=== PATIENT | male | born 1965 | race Caucasian/White ===

== ENCOUNTER 2017-02-03 12:44 | Inpatient (IN) | payer OTHER ==
[~2017-02-03] VITALS: Ht 170.2 cm; Wt 107.3 kg
[~2017-02-03 12:44] MED LIST: AMLODIPINE BESY10 MG PO; ASPIR 8181 M1 PO; ATORVASTATIN CA40 MG PO; CARDIZEM SR120 MG PO; CLINDAMYCIN HC300 MG PO; ENDOCET 5-3251 EACH PO; HUMULIN 70100 UNIT/2 SC; HUMULIN 70100 UNIT/3 SC; HYDROCODON-ACE1 EAC7 PO; KEFLEX500 MG PO; LIPITOR10 MG PO; LISINOPRIL40 MG PO; Levaquin PO; METOPROLOL SUCC25 MG PO; NOVOLIN,HU100 UNITS/ SQ; NOVOLOG MI100 UNIT/4 SC; TOPROL XL25 MG PO; TYLOX1 CAPSULE PO
[2017-02-03 13:22] LABS: POINT-OF-CARE METER ID UU13113778
[2017-02-03 13:28] LABS: EOSINOPHIL (%) 0 % (0-5); HEMATOCRIT 36.6 % (38.0-50.0); IMMATURE GRANULOCYTE (%) 0.4 % (0.0-0.7); IMMATURE GRANULOCYTE COUNT 0.1 K/uL; INSTRUMENT ABS NEUTROPHIL CT 13.8 K/uL; MCH 26.7 PG (29.0-34.0); MCHC 31.4 G/DL (30.0-36.0); MCV 84.9 FL (86-99); MEAN PLAT.VOLUME 9.7 uM^3 (9.0-12.4); MONOCYTE (%) 7.6 % (3-12); MONOCYTE COUNT 1.2 K/uL (0-0.8); NEUTROPHIL (%) 85.6 % (45-76); NEUTROPHIL COUNT 13.8 K/uL (1.8-6.4); PLATELET COUNT 246 K/uL (156-360); RBC DIS.WIDTH-CV 13.9 % (11.8-14.6); RBC DIS.WIDTH-SD 42.9 % (39-53); RED BLOOD COUNT 4.31 M/uL (4.00-5.50); WHITE BLOOD COUNT 16.1 K/uL (4.1-10.2)
[2017-02-03 13:40] LABS: CHLORIDE 102 mEq/L (99-109); POTASSIUM 4.4 mEq/L (3.7-5.4); SODIUM 136 mEq/L (136-147)
[2017-02-03 13:42] LABS: GLUCOSE 158 mg/dL (70-99)
[2017-02-03 13:43] LABS: ANION GAP 9 MEQ/L (2-14)
[2017-02-03 13:46] LABS: GFR ESTIMATE (CALCULATED) > 59 mL/min/; UREA NITROGEN (BUN) 22 mg/dL (9-23)
[2017-02-03 14:50] LABS: ERTH.SED.RATE 69 MM/HR (0-20)
[2017-02-03] MEDS ORDERED: NORVASC10 MG PO (14:51)
[2017-02-03] MEDS ORDERED: LOW DOSE ASPIRI81 M1 PO (14:51)
[2017-02-03] MEDS ORDERED: CARDIZEM SR120 MG PO (14:52)
[2017-02-03] MEDS ORDERED: HUMALOG MI100 UNIT/5 SC (14:53)
[2017-02-03] MEDS ORDERED: ZESTRIL40 MG PO (14:53)
[2017-02-03] MEDS ORDERED: TOPROL XL25 MG PO (14:54)
[2017-02-03] MEDS ORDERED: TRADJENTA5 MG PO (14:54)
[2017-02-03] MEDS ORDERED: AUGMENTIN875 MG PO (14:55)
[2017-02-03 16:42] LABS: ADD MIUA? YES; BILIRUBIN NEGATIVE; BLOOD SMALL; COLOR YELLOW ((YELLOW)); GLUCOSE (STRIP) 50; KETONES NEGATIVE; LEUKOCYTES NEGATIVE; NITRITE NEGATIVE; PROTEIN (STRIP) >=500; SPECIFIC GRAVITY 1.014 (1.000-1.030); UROBILINOGEN 0.2 MG/DL (0.2-1.0)
[2017-02-03 16:49] LABS: BACTERIA NONE SEEN /HPF; EPITHELIAL CELLS RARE /HPF; HYALINE CASTS 0-5 /LPF; MUCUS TRACE /LPF; RED BLOOD CELLS 0-5 /HPF (0-5); UCUL ADDED? NO; WHITE BLOOD CELLS 0-5 /HPF (0-5)
[2017-02-03 19:20] LABS: Estimated Average Glucose 194 mg/dL (70-123); HEMOGLOBIN A1c (GLYCOHEMOGLOB) 8.4 % HGB (Below 5.7)
[2017-02-03 20:34] LABS: TROP-I INTERPRETATION NEGATIVE; TROPONIN-I 0.02 ng/mL (0.0-0.30)
[2017-02-03 20:40] VITALS: BP 176/81
[2017-02-03 22:28] VITALS: BP 129/58
[2017-02-04 00:13] VITALS: BP 109/53
[2017-02-04 04:27] VITALS: BP 160/100
[2017-02-04 05:39] LABS: ANION GAP 8 MEQ/L (2-14); CHLORIDE 102 MEQ/L (99-109); GFR ESTIMATE (CALCULATED) 57 mL/min/; GLUCOSE 172 mg/dL (70-99); POTASSIUM 4.2 MEQ/L (3.7-5.4); SAMPLE HEMOLYSIS CHECK 0; SAMPLE ICTERIC CHECK 0; SAMPLE LIPEMIA CHECK 0; SODIUM 135 MEQ/L (136-147); UREA NITROGEN (BUN) 23 mg/dL (9-23)
[2017-02-04 05:47] LABS: HEMATOCRIT 31.3 % (38.0-50.0); MCH 26.6 PG (29.0-34.0); MCHC 31.3 G/DL (30.0-36.0); MCV 85.1 FL (86-99); MEAN PLAT.VOLUME 10.3 uM^3 (9.0-12.4); PLATELET COUNT 190 K/uL (156-360); RBC DIS.WIDTH-CV 13.9 % (11.8-14.6); RBC DIS.WIDTH-SD 43.3 % (39-53); RED BLOOD COUNT 3.68 M/uL (4.00-5.50)
[2017-02-04 05:48] LABS: WHITE BLOOD COUNT 7.9 K/uL (4.1-10.2)
[2017-02-04 07:24] VITALS: BP 122/58
[2017-02-04 07:49] VITALS: BP 132/60
[2017-02-04 15:00] VITALS: BP 129/70
[2017-02-04 16:35] LABS: POINT-OF-CARE METER ID UU14188577
[2017-02-04 20:11] VITALS: BP 125/66
[2017-02-05] VITALS (7 sets, daily range): BP systolic 103–140; BP diastolic 55–78
[2017-02-05 02:54] LABS: CHLORIDE 105 mEq/L (99-109); POTASSIUM 3.8 mEq/L (3.7-5.4); SODIUM 135 mEq/L (136-147)
[2017-02-05 02:56] LABS: GLUCOSE 164 mg/dL (70-99)
[2017-02-05 02:57] LABS: ANION GAP 7 MEQ/L (2-14)
[2017-02-05 03:00] LABS: GFR ESTIMATE (CALCULATED) 57 mL/min/; HEMATOCRIT 30.1 % (38.0-50.0); MCHC 31.6 G/DL (30.0-36.0); MCV 85.5 FL (86-99); MEAN PLAT.VOLUME 9.6 uM^3 (9.0-12.4); PLATELET COUNT 179 K/uL (156-360); RED BLOOD COUNT 3.52 M/uL (4.00-5.50)
[2017-02-05 03:01] LABS: UREA NITROGEN (BUN) 28 mg/dL (9-23)
[2017-02-05 11:15] LABS: POINT-OF-CARE METER ID UU14149397
[2017-02-05 16:32] LABS: POINT-OF-CARE METER ID UU14188577
[2017-02-05 22:01] LABS: POINT-OF-CARE METER ID UU14188577
[2017-02-06 04:06] VITALS: BP 142/78
[2017-02-06 06:14] LABS: HEMATOCRIT 30.7 % (38.0-50.0); MCH 26.1 PG (29.0-34.0); MCHC 30.6 G/DL (30.0-36.0); MCV 85.3 FL (86-99); MEAN PLAT.VOLUME 10.4 uM^3 (9.0-12.4); PLATELET COUNT 196 K/uL (156-360); RBC DIS.WIDTH-CV 13.9 % (11.8-14.6); RBC DIS.WIDTH-SD 43.3 % (39-53); WHITE BLOOD COUNT 4.7 K/uL (4.1-10.2)
[2017-02-06 06:39] LABS: ANION GAP 8 MEQ/L (2-14); CHLORIDE 109 MEQ/L (99-109); GFR ESTIMATE (CALCULATED) > 59 mL/min/; GLUCOSE 147 mg/dL (70-99); POTASSIUM 3.9 MEQ/L (3.7-5.4); SAMPLE HEMOLYSIS CHECK 0; SAMPLE ICTERIC CHECK 0; SAMPLE LIPEMIA CHECK 0; SODIUM 140 MEQ/L (136-147); UREA NITROGEN (BUN) 20 mg/dL (9-23)
[2017-02-06 07:57] VITALS: BP 130/78
[2017-02-06 12:02] LABS: POINT-OF-CARE METER ID UU14188577
[2017-02-06 12:23] VITALS: BP 140/78; BP 146/95
[2017-02-06 16:07] LABS: POINT-OF-CARE METER ID UU14188577
[2017-02-06 16:17] VITALS: BP 138/72
[2017-02-06 20:41] VITALS: BP 177/81
[2017-02-07 00:49] VITALS: BP 136/67
[2017-02-07 04:36] VITALS: BP 159/70
[2017-02-07 05:58] LABS: ANION GAP 9 MEQ/L (2-14); CHLORIDE 108 MEQ/L (99-109); GFR ESTIMATE (CALCULATED) > 59 mL/min/; GLUCOSE 113 mg/dL (70-99); POTASSIUM 3.7 MEQ/L (3.7-5.4); SAMPLE HEMOLYSIS CHECK 0; SAMPLE ICTERIC CHECK 0; SAMPLE LIPEMIA CHECK 0; SODIUM 140 MEQ/L (136-147); UREA NITROGEN (BUN) 15 mg/dL (9-23)
[2017-02-07 06:31] LABS: HEMATOCRIT 28.7 % (38.0-50.0); MCH 26.6 PG (29.0-34.0); MCHC 31.4 G/DL (30.0-36.0); MCV 84.9 FL (86-99); MEAN PLAT.VOLUME 10.6 uM^3 (9.0-12.4); PLATELET COUNT 190 K/uL (156-360); RBC DIS.WIDTH-CV 13.7 % (11.8-14.6); RBC DIS.WIDTH-SD 42.6 % (39-53); RED BLOOD COUNT 3.38 M/uL (4.00-5.50); WHITE BLOOD COUNT 5.7 K/uL (4.1-10.2)
[2017-02-07 07:15] LABS: POINT-OF-CARE METER ID UU14149397
[2017-02-07 09:00] VITALS: BP 161/77
[2017-02-07 16:40] VITALS: BP 174/83
[2017-02-07 19:26] VITALS: BP 178/86
[2017-02-07 22:10] LABS: POINT-OF-CARE METER ID UU14188577
[2017-02-08 00:39] VITALS: BP 166/79
[2017-02-08 05:58] LABS: GFR ESTIMATE (CALCULATED) > 59 mL/min/
[2017-02-08 07:05] LABS: POINT-OF-CARE METER ID UU14188577
[2017-02-08 08:15] VITALS: BP 160/82
[2017-02-08] MEDS ORDERED: VANCOMYCIN1 GM/150 M IV (15:40)
[2017-02-08 15:56] VITALS: BP 138/74
[2017-02-08] MEDS ORDERED: ACIDOPHILUS LA1 EACH PO (18:14)
== END 2017-02-08 18:18 | disposition home health service (06) | DRG 872 ==
LOC: EME 12:44 → 3EAST 15:55 → EDOF 15:55 → 3EAST 19:50
PROVIDERS: Hospitalist; Internal Medicine; Nurse Practitioner Family
DX: A41.02 Sepsis due to Methicillin resistant Staphylococcus aureus (principal); L03.116 Cellulitis of left lower limb; E11.621 Type 2 diabetes mellitus with foot ulcer; L97.522 Non-pressure chronic ulcer of other part of left foot with fat layer exposed; M86.672 Other chronic osteomyelitis, left ankle and foot; E87.1 Hypo-osmolality and hyponatremia; N28.9 Disorder of kidney and ureter, unspecified; I12.9 Hypertensive chronic kidney disease with stage 1 through stage 4 chronic kidney disease, or unspecified chronic kidney disease; N18.3 Chronic kidney disease, stage 3 (moderate); E11.22 Type 2 diabetes mellitus with diabetic chronic kidney disease; E11.40 Type 2 diabetes mellitus with diabetic neuropathy, unspecified; E11.319 Type 2 diabetes mellitus with unspecified diabetic retinopathy without macular edema; E11.610 Type 2 diabetes mellitus with diabetic neuropathic arthropathy; E11.69 Type 2 diabetes mellitus with other specified complication; I25.10 Atherosclerotic heart disease of native coronary artery without angina pectoris; E78.00 Pure hypercholesterolemia, unspecified; E66.9 Obesity, unspecified; I25.2 Old myocardial infarction; Z68.37 Body mass index [BMI] 37.0-37.9, adult; Z79.4 Long term (current) use of insulin; Z87.891 Personal history of nicotine dependence; Z86.73 Personal history of transient ischemic attack (TIA), and cerebral infarction without residual deficits; Z89.431 Acquired absence of right foot; Z79.82 Long term (current) use of aspirin; Z95.5 Presence of coronary angioplasty implant and graft
CPT/HCPCS: 73630; 73720; 76937; 80048; 80202; 81003; 82565; 82948; 83036; 83605; 84484; 85025; 85027; 85651; 87040; 87070; 87075; 87077; 87147; 87186; 87205; 87801; 99281; 99285; J1650; J1815; J2543; J3370; J7030; J7050

== ENCOUNTER 2017-02-20 10:07 | Inpatient (IN) | payer OTHER ==
[~2017-02-20] VITALS: Ht 175.3 cm; Wt 108.9 kg
[~2017-02-20 10:07] MED LIST changes: +ACIDOPHILUS LA1 EACH PO; +AUGMENTIN875 MG PO; +HUMALOG MI100 UNIT/5 SC; +LOW DOSE ASPIRI81 M1 PO; +NORVASC10 MG PO; +TRADJENTA5 MG PO; +VANCOMYCIN1 GM/150 M IV; +ZESTRIL40 MG PO
[2017-02-20 11:23] LABS: HEMATOCRIT 38.4 % (38.0-50.0); MCH 26.7 PG (29.0-34.0); MCHC 31.3 G/DL (30.0-36.0); MCV 85.5 FL (86-99); MEAN PLAT.VOLUME 10.3 uM^3 (9.0-12.4); PLATELET COUNT 276 K/uL (156-360); RBC DIS.WIDTH-CV 13.8 % (11.8-14.6); RBC DIS.WIDTH-SD 42.8 % (39-53); RED BLOOD COUNT 4.49 M/uL (4.00-5.50)
[2017-02-20 11:24] LABS: WHITE BLOOD COUNT 14.6 K/uL (4.1-10.2)
[2017-02-20 11:28] LABS: CHLORIDE 102 mEq/L (99-109); POTASSIUM 4.4 mEq/L (3.7-5.4); SODIUM 139 mEq/L (136-147)
[2017-02-20 11:30] LABS: GLUCOSE 148 mg/dL (70-99)
[2017-02-20 11:31] LABS: ANION GAP 13 MEQ/L (2-14)
[2017-02-20 11:34] LABS: GFR ESTIMATE (CALCULATED) 52 mL/min/; UREA NITROGEN (BUN) 32 mg/dL (9-23)
[2017-02-20 14:09] LABS: ADD MIUA? YES; BILIRUBIN NEGATIVE; BLOOD SMALL; COLOR AMBER ((YELLOW)); GLUCOSE (STRIP) NEGATIVE; KETONES 5; LEUKOCYTES NEGATIVE; NITRITE NEGATIVE; PROTEIN (STRIP) >=500; SPECIFIC GRAVITY 1.015 (1.000-1.030); UROBILINOGEN 0.2 MG/DL (0.2-1.0)
[2017-02-20 14:18] LABS: BACTERIA RARE /HPF; EPITHELIAL CELLS RARE /HPF; MUCUS NONE SEEN /LPF; UCUL ADDED? NO; URIC ACID CRYSTALS 1+ /HPF
[2017-02-20 16:47] LABS: POINT-OF-CARE METER ID UU13113702
[2017-02-20] MEDS ORDERED: ATORVASTATIN CA80 MG PO (17:57)
[2017-02-20] MEDS ORDERED: VANCOMYCIN1 GM/150 M IV (17:57)
[2017-02-20] MEDS ORDERED: ACIDOPHILUS LA1 EACH PO (17:59)
[2017-02-20 20:13] LABS: C DIFF TOXIN NEGATIVE (NEGATIVE)
[2017-02-20 20:14] VITALS: BP 142/68
[2017-02-20 20:19] LABS: PROBE CHECK PASS; SPECIMEN PROCESSING CONTROL PASS
[2017-02-20 23:09] LABS: HEMATOCRIT 33.2 % (38.0-50.0); MCV 84.7 FL (86-99)
[2017-02-21 07:08] VITALS: BP 132/69
[2017-02-21 07:25] LABS: EOSINOPHIL (%) 0 % (0-5); IMMATURE GRANULOCYTE (%) 0.3 % (0.0-0.7); INSTRUMENT ABS NEUTROPHIL CT 6.8 K/uL; LYMPHOCYTE COUNT 1.4 K/uL (1.0-2.8); MCH 26.2 PG (29.0-34.0); MCHC 30.6 G/DL (30.0-36.0); MCV 85.4 FL (86-99); MEAN PLAT.VOLUME 10.2 uM^3 (9.0-12.4); MONOCYTE (%) 11.9 % (3-12); MONOCYTE COUNT 1.1 K/uL (0-0.8); NEUTROPHIL (%) 73.1 % (45-76); NEUTROPHIL COUNT 6.8 K/uL (1.8-6.4); PLATELET COUNT 206 K/uL (156-360); RBC DIS.WIDTH-CV 14.2 % (11.8-14.6); RBC DIS.WIDTH-SD 44.4 % (39-53); RED BLOOD COUNT 3.63 M/uL (4.00-5.50)
[2017-02-21 07:26] LABS: WHITE BLOOD COUNT 9.3 K/uL (4.1-10.2)
[2017-02-21 07:38] LABS: ANION GAP 7 MEQ/L (2-14); CHLORIDE 109 MEQ/L (99-109); GFR ESTIMATE (CALCULATED) > 59 mL/min/; GLUCOSE 137 mg/dL (70-99); POTASSIUM 4.1 MEQ/L (3.7-5.4); SAMPLE HEMOLYSIS CHECK 0; SAMPLE ICTERIC CHECK 0; SAMPLE LIPEMIA CHECK 0; SODIUM 140 MEQ/L (136-147); UREA NITROGEN (BUN) 28 mg/dL (9-23)
[2017-02-21 10:13] LABS: IMM.RETIC FRACTION 10.4 % (3-19); RETIC HGB EQUIVALENT 32.3 (28-36); RETICULOCYTE COUNT 1.2 % (0.5-1.8)
[2017-02-21 10:31] LABS: IRON 41 MCG/DL (35-150)
[2017-02-21 10:44] LABS: FERRITIN 101 NG/ML (22-322)
[2017-02-21 11:46] LABS: VANCOMYCIN, TROUGH 8.6 MCG/ML (10-20)
[2017-02-21 15:47] LABS: POINT-OF-CARE METER ID UU13113725
[2017-02-21 15:51] VITALS: BP 140/67
[2017-02-21 22:21] VITALS: BP 146/76
[2017-02-22 06:52] LABS: EOSINOPHIL (%) 0 % (0-5); HEMATOCRIT 30.4 % (38.0-50.0); IMMATURE GRANULOCYTE (%) 0.4 % (0.0-0.7); INSTRUMENT ABS NEUTROPHIL CT 5.9 K/uL; LYMPHOCYTE COUNT 1.5 K/uL (1.0-2.8); MCH 26.6 PG (29.0-34.0); MCHC 30.9 G/DL (30.0-36.0); MCV 85.9 FL (86-99); MONOCYTE (%) 11.6 % (3-12); NEUTROPHIL COUNT 5.9 K/uL (1.8-6.4); PLATELET COUNT 199 K/uL (156-360); RBC DIS.WIDTH-SD 43.9 % (39-53); RED BLOOD COUNT 3.54 M/uL (4.00-5.50); WHITE BLOOD COUNT 8.5 K/uL (4.1-10.2)
[2017-02-22 07:04] VITALS: BP 150/81
[2017-02-22 07:17] LABS: ALKALINE PHOSPHATASE 53 IU/L (3-129); ANION GAP 9 MEQ/L (2-14); CHLORIDE 109 MEQ/L (99-109); GFR ESTIMATE (CALCULATED) > 59 mL/min/; GLUCOSE 124 mg/dL (70-99); POTASSIUM 3.7 MEQ/L (3.7-5.4); SAMPLE HEMOLYSIS CHECK 0; SAMPLE ICTERIC CHECK 0; SAMPLE LIPEMIA CHECK 0; SODIUM 141 MEQ/L (136-147); TOTAL BILIRUBIN 0.5 MG/DL (0.0-1.0); UREA NITROGEN (BUN) 18 mg/dL (9-23)
[2017-02-22 10:40] LABS: POINT-OF-CARE METER ID UU13113725
[2017-02-22 13:38] LABS: POINT-OF-CARE METER ID UU13113819
[2017-02-22 15:32] VITALS: BP 140/74
[2017-02-22 16:17] LABS: POINT-OF-CARE METER ID UU13113725
[2017-02-22 21:12] LABS: POINT-OF-CARE METER ID UU13113725
[2017-02-22 22:38] VITALS: BP 139/67
[2017-02-23 05:56] LABS: POINT-OF-CARE METER ID UU13113725
[2017-02-23 06:26] LABS: EOSINOPHIL (%) 0 % (0-5); IMMATURE GRANULOCYTE (%) 0.5 % (0.0-0.7); INSTRUMENT ABS NEUTROPHIL CT 5.6 K/uL; LYMPHOCYTE COUNT 0.7 K/uL (1.0-2.8); MCH 26.3 PG (29.0-34.0); MCHC 31.3 G/DL (30.0-36.0); MCV 84.2 FL (86-99); MEAN PLAT.VOLUME 10.1 uM^3 (9.0-12.4); MONOCYTE (%) 0.8 % (3-12); MONOCYTE COUNT 0.1 K/uL (0-0.8); NEUTROPHIL (%) 87.9 % (45-76); NEUTROPHIL COUNT 5.6 K/uL (1.8-6.4); PLATELET COUNT 219 K/uL (156-360); RBC DIS.WIDTH-CV 13.6 % (11.8-14.6); WHITE BLOOD COUNT 6.3 K/uL (4.1-10.2)
[2017-02-23 06:49] LABS: ALKALINE PHOSPHATASE 54 IU/L (3-129); ANION GAP 11 MEQ/L (2-14); CHLORIDE 106 MEQ/L (99-109); GFR ESTIMATE (CALCULATED) > 59 mL/min/; SAMPLE HEMOLYSIS CHECK 0; SAMPLE ICTERIC CHECK 0; SAMPLE LIPEMIA CHECK 0; SODIUM 138 MEQ/L (136-147); TOTAL BILIRUBIN 0.4 MG/DL (0.0-1.0); UREA NITROGEN (BUN) 17 mg/dL (9-23)
[2017-02-23 06:50] LABS: GLUCOSE 218 mg/dL (70-99)
[2017-02-23 06:56] VITALS: BP 183/84
[2017-02-23 07:27] LABS: ERTH.SED.RATE 52 MM/HR (0-20)
[2017-02-23 07:47] VITALS: BP 130/92
[2017-02-23 11:31] LABS: POINT-OF-CARE METER ID UU13113725
[2017-02-23 15:15] VITALS: BP 142/82
[2017-02-23 15:28] LABS: POINT-OF-CARE METER ID UU13113725
[2017-02-23 23:06] VITALS: BP 115/55
[2017-02-24 06:22] LABS: EOSINOPHIL (%) 0 % (0-5); HEMATOCRIT 31.2 % (38.0-50.0); IMMATURE GRANULOCYTE (%) 0.7 % (0.0-0.7); IMMATURE GRANULOCYTE COUNT 0.1 K/uL; INSTRUMENT ABS NEUTROPHIL CT 9.6 K/uL; LYMPHOCYTE COUNT 0.9 K/uL (1.0-2.8); MCH 26.6 PG (29.0-34.0); MCHC 31.7 G/DL (30.0-36.0); MCV 83.9 FL (86-99); MEAN PLAT.VOLUME 10.5 uM^3 (9.0-12.4); MONOCYTE COUNT 0.2 K/uL (0-0.8); NEUTROPHIL (%) 89.3 % (45-76); NEUTROPHIL COUNT 9.6 K/uL (1.8-6.4); PLATELET COUNT 270 K/uL (156-360); RBC DIS.WIDTH-CV 13.9 % (11.8-14.6); RBC DIS.WIDTH-SD 42.3 % (39-53); RED BLOOD COUNT 3.72 M/uL (4.00-5.50)
[2017-02-24 06:23] LABS: WHITE BLOOD COUNT 10.8 K/uL (4.1-10.2)
[2017-02-24 06:52] LABS: ALKALINE PHOSPHATASE 53 IU/L (3-129); ANION GAP 10 MEQ/L (2-14); CHLORIDE 106 MEQ/L (99-109); GFR ESTIMATE (CALCULATED) > 59 mL/min/; GLUCOSE 210 mg/dL (70-99); SAMPLE HEMOLYSIS CHECK 0; SAMPLE ICTERIC CHECK 0; SAMPLE LIPEMIA CHECK 0; SODIUM 138 MEQ/L (136-147); UREA NITROGEN (BUN) 25 mg/dL (9-23)
[2017-02-24 06:53] LABS: TOTAL BILIRUBIN 0.3 MG/DL (0.0-1.0)
[2017-02-24 07:14] VITALS: BP 133/60
[2017-02-24] MEDS ORDERED: LIALDA1.2 GM PO (07:59)
[2017-02-24] MEDS ORDERED: METRONIDAZOLE500 MG PO (07:59)
[2017-02-24] MEDS ORDERED: DELTASONE20 M1 PO (07:59)
[2017-02-24 11:45] LABS: POINT-OF-CARE METER ID UU13113725
== END 2017-02-24 13:54 | disposition home or self-care (01) | DRG 386 ==
LOC: EME 10:07 → 5EAST 17:54 → EDOF 17:54 → 5EAST 20:03
PROVIDERS: Emergency Medicine; Hospitalist
PROC: 0HDNXZZ Extraction of Left Foot Skin, External Approach (ICD-10-PCS; principal; 2017-02-21)
PROC: 0DBB8ZX Excision of Ileum, Via Natural or Artificial Opening Endoscopic, Diagnostic (ICD-10-PCS; 2017-02-22)
PROC: 0DBN8ZX Excision of Sigmoid Colon, Via Natural or Artificial Opening Endoscopic, Diagnostic (ICD-10-PCS; 2017-02-22)
DX: K51.30 Ulcerative (chronic) rectosigmoiditis without complications (principal); A52.16 Charcot's arthropathy (tabetic); E11.621 Type 2 diabetes mellitus with foot ulcer; M86.672 Other chronic osteomyelitis, left ankle and foot; E11.65 Type 2 diabetes mellitus with hyperglycemia; E11.42 Type 2 diabetes mellitus with diabetic polyneuropathy; N17.9 Acute kidney failure, unspecified; K51.90 Ulcerative colitis, unspecified, without complications; L03.116 Cellulitis of left lower limb; I10 Essential (primary) hypertension; E78.5 Hyperlipidemia, unspecified; I25.10 Atherosclerotic heart disease of native coronary artery without angina pectoris; Z98.61 Coronary angioplasty status; A49.02 Methicillin resistant Staphylococcus aureus infection, unspecified site; K62.5 Hemorrhage of anus and rectum; Z79.4 Long term (current) use of insulin; L97.429 Non-pressure chronic ulcer of left heel and midfoot with unspecified severity; Z89.421 Acquired absence of other right toe(s); Z80.0 Family history of malignant neoplasm of digestive organs; D12.5 Benign neoplasm of sigmoid colon; K63.5 Polyp of colon; Z87.891 Personal history of nicotine dependence; L89.892 Pressure ulcer of other site, stage 2
CPT/HCPCS: 71010; 74176; 80048; 80053; 80202; 81003; 82607; 82728; 82746; 82948; 83540; 83605; 84466; 85014; 85018; 85025; 85027; 85045; 85651; 86140; 87040; 87493; 88305; 93971; 94799; 99281; 99285; J1815; J1956; J2250; J2930; J3010; J3370; J7030; S0030

== ENCOUNTER 2017-04-03 13:13 | Inpatient (IN) | payer OTHER ==
[~2017-04-03] VITALS: Ht 172.7 cm; Wt 106.7 kg
[~2017-04-03 13:13] MED LIST changes: +ATORVASTATIN CA80 MG PO; +DELTASONE20 M1 PO; +LIALDA1.2 GM PO; +METRONIDAZOLE500 MG PO
[2017-04-03 14:29] LABS: HEMATOCRIT 34.3 % (38.0-50.0); MCH 26.8 PG (29.0-34.0); MCHC 31.5 G/DL (30.0-36.0); MCV 85.1 FL (86-99); MEAN PLAT.VOLUME 9.7 uM^3 (9.0-12.4); PLATELET COUNT 258 K/uL (156-360); RBC DIS.WIDTH-CV 15.2 % (11.8-14.6); RBC DIS.WIDTH-SD 47.7 % (39-53); RED BLOOD COUNT 4.03 M/uL (4.00-5.50); WHITE BLOOD COUNT 9.7 K/uL (4.1-10.2)
[2017-04-03 14:39] LABS: CHLORIDE 109 mEq/L (99-109); POTASSIUM 5.6 mEq/L (3.7-5.4); SODIUM 137 mEq/L (136-147)
[2017-04-03 14:42] LABS: GLUCOSE 243 mg/dL (70-99)
[2017-04-03 14:43] LABS: ANION GAP 7 MEQ/L (2-14)
[2017-04-03 14:44] LABS: TOTAL BILIRUBIN 0.3 mg/dL (0.0-1.0)
[2017-04-03 14:45] LABS: ALKALINE PHOSPHATASE 53 IU/L (3-129); GFR ESTIMATE (CALCULATED) 35 mL/min/
[2017-04-03 14:46] LABS: UREA NITROGEN (BUN) 54 mg/dL (9-23)
[2017-04-03] MEDS ORDERED: PREDNISONE10 MG PO (16:56)
[2017-04-03] MEDS ORDERED: AQUAPHOR W-NAT50 GM TP (16:57)
[2017-04-03 17:27] LABS: POINT-OF-CARE METER ID UU14100415
[2017-04-03 18:07] LABS: POINT-OF-CARE METER ID UU14100415; POINT-OF-CARE USER ID STWBNM
[2017-04-04 01:04] LABS: POINT-OF-CARE METER ID UU14100415
[2017-04-04 05:51] LABS: HEMATOCRIT 31.2 % (38.0-50.0); MCH 27.1 PG (29.0-34.0); MCHC 31.4 G/DL (30.0-36.0); MCV 86.2 FL (86-99); MEAN PLAT.VOLUME 9.3 uM^3 (9.0-12.4); PLATELET COUNT 223 K/uL (156-360); RBC DIS.WIDTH-CV 15.2 % (11.8-14.6); RBC DIS.WIDTH-SD 48.2 % (39-53); RED BLOOD COUNT 3.62 M/uL (4.00-5.50); WHITE BLOOD COUNT 6.1 K/uL (4.1-10.2)
[2017-04-04 06:00] LABS: CHLORIDE 113 mEq/L (99-109); SODIUM 140 mEq/L (136-147)
[2017-04-04 06:02] LABS: GLUCOSE 162 mg/dL (70-99)
[2017-04-04 06:03] LABS: ANION GAP 5 MEQ/L (2-14)
[2017-04-04 06:05] LABS: GFR ESTIMATE (CALCULATED) 52 mL/min/
[2017-04-04 06:06] LABS: UREA NITROGEN (BUN) 45 mg/dL (9-23)
[2017-04-04 07:47] LABS: POINT-OF-CARE METER ID UU13113702
[2017-04-04 08:00] LABS: INTACT PARATHYROID HORMONE 72 pg/mL (10-69)
[2017-04-04 10:30] VITALS: BP 154/79
[2017-04-04 11:41] LABS: ADD MIUA? NO; BILIRUBIN NEGATIVE; BLOOD NEGATIVE; COLOR STRAW ((YELLOW)); GLUCOSE (STRIP) NEGATIVE; KETONES NEGATIVE; LEUKOCYTES NEGATIVE; NITRITE NEGATIVE; PROTEIN (STRIP) 30; SPECIFIC GRAVITY 1.012 (1.000-1.030); UCUL ADDED? NO; UROBILINOGEN 0.2 MG/DL (0.2-1.0)
[2017-04-04 11:55] LABS: POINT-OF-CARE METER ID UU13113702
[2017-04-04 12:18] LABS: UR CREATININE CONCENTRATION 69.1 MG/DL; UR CREATININE CONCENTRATION 69.3 MG/DL
[2017-04-04 12:36] VITALS: BP 139/61
[2017-04-04 13:41] LABS: URINE TOTAL PROTEIN 21 MG/DL (0-10)
[2017-04-04 14:20] VITALS: BP 161/76
[2017-04-04 19:26] VITALS: BP 158/71
[2017-04-04 23:23] VITALS: BP 132/65
[2017-04-05 03:27] VITALS: BP 139/73
[2017-04-05 06:45] LABS: EOSINOPHIL (%) 0 % (0-5); HEMATOCRIT 33.6 % (38.0-50.0); IMMATURE GRANULOCYTE (%) 0.3 % (0.0-0.7); INSTRUMENT ABS NEUTROPHIL CT 3.5 K/uL; MCH 27.2 PG (29.0-34.0); MCHC 31.8 G/DL (30.0-36.0); MCV 85.3 FL (86-99); MEAN PLAT.VOLUME 9.9 uM^3 (9.0-12.4); MONOCYTE (%) 8.9 % (3-12); MONOCYTE COUNT 0.5 K/uL (0-0.8); NEUTROPHIL (%) 57.1 % (45-76); NEUTROPHIL COUNT 3.5 K/uL (1.8-6.4); PLATELET COUNT 262 K/uL (156-360); RBC DIS.WIDTH-CV 14.8 % (11.8-14.6); RBC DIS.WIDTH-SD 45.8 % (39-53); RED BLOOD COUNT 3.94 M/uL (4.00-5.50); WHITE BLOOD COUNT 6.1 K/uL (4.1-10.2)
[2017-04-05 07:16] LABS: ANION GAP 9 MEQ/L (2-14); CHLORIDE 108 MEQ/L (99-109); GFR ESTIMATE (CALCULATED) > 59 mL/min/; POTASSIUM 4.4 MEQ/L (3.7-5.4); SAMPLE HEMOLYSIS CHECK 0; SAMPLE ICTERIC CHECK 0; SAMPLE LIPEMIA CHECK 0; SODIUM 142 MEQ/L (136-147); UREA NITROGEN (BUN) 29 mg/dL (9-23); URIC ACID 7.3 mg/dL (3.1-9.2)
[2017-04-05 07:20] VITALS: BP 152/73
[2017-04-05 07:23] LABS: GLUCOSE 97 mg/dL (70-99)
[2017-04-05 11:02] VITALS: BP 132/69
[2017-04-05 11:20] LABS: POINT-OF-CARE METER ID UU14174225
[2017-04-05] MEDS ORDERED: LISINOPRIL2.5 MG PO (11:35)
[2017-04-06 11:25] LABS: IFE GEL NO. 68-5
== END 2017-04-05 13:05 | disposition home or self-care (01) | DRG 641 ==
LOC: EME 13:13 → EDOF 21:29 → 5SOUTH 21:29 → EDOF 04-04 11:01 → 5SOUTH 04-04 14:05
PROVIDERS: Hospitalist; Internal Medicine; Internal Medicine Nephrology; Physician Assistant
DX: E87.5 Hyperkalemia (principal); N17.9 Acute kidney failure, unspecified; E86.0 Dehydration; I12.9 Hypertensive chronic kidney disease with stage 1 through stage 4 chronic kidney disease, or unspecified chronic kidney disease; N18.3 Chronic kidney disease, stage 3 (moderate); E11.22 Type 2 diabetes mellitus with diabetic chronic kidney disease; E11.621 Type 2 diabetes mellitus with foot ulcer; L97.521 Non-pressure chronic ulcer of other part of left foot limited to breakdown of skin; I25.10 Atherosclerotic heart disease of native coronary artery without angina pectoris; I25.2 Old myocardial infarction; E11.65 Type 2 diabetes mellitus with hyperglycemia; E66.9 Obesity, unspecified; Z68.35 Body mass index [BMI] 35.0-35.9, adult; Z79.4 Long term (current) use of insulin; Z86.73 Personal history of transient ischemic attack (TIA), and cerebral infarction without residual deficits; Z89.421 Acquired absence of other right toe(s); Z95.5 Presence of coronary angioplasty implant and graft; Z87.891 Personal history of nicotine dependence
CPT/HCPCS: 36415; 73630; 76770; 80048; 80053; 80069; 81003; 82570; 82575; 82948; 83036; 83605; 83735; 83970; 84156; 84300; 84550; 85025; 85027; 85610; 85651; 85730; 86335; 87040; 89190; 93005; 99281; 99285; J1644; J1815; J7030; J7512

== ENCOUNTER → 2017-04-12 | Outpatient (CLI) | payer OTHER ==
[~2017-04-12] MED LIST changes: +APRISO0.375 GM PO; +AQUAPHOR W-NAT50 GM TP; +HUMALOG MI100 UNIT/6 SC; +LISINOPRIL2.5 MG PO; +PREDNISONE10 MG PO
== END | disposition home or self-care (01) ==
LOC: PICC 08:37
DX: M86.372 Chronic multifocal osteomyelitis, left ankle and foot (principal); M14.672 Charcot's joint, left ankle and foot
CPT/HCPCS: 76937

== ENCOUNTER → 2017-05-03 | Outpatient (CLI) | payer OTHER ==
[~2017-05-03] VITALS: Ht 170.2 cm; Wt 224.0 kg
[2017-05-03 18:51] VITALS: BP 137/65
== END | disposition home or self-care (01) ==
LOC: IVINF 18:45
DX: E11.69 Type 2 diabetes mellitus with other specified complication (principal); L08.9 Local infection of the skin and subcutaneous tissue, unspecified
CPT/HCPCS: 96374 59; J7050; S0073

== ENCOUNTER 2017-05-31 10:37 | Day surgery (SDC) | payer OTHER ==
[~2017-05-31] VITALS: Ht 175.3 cm; Wt 114.3 kg
[~2017-05-31 10:37] MED LIST changes: +AZTREONAM IV; +DILTIAZEM 24HR120 M2 PO; +VANCOMYCIN IV; +ZESTRIL2.5 MG PO
[2017-05-31 11:59] VITALS: BP 184/86
[2017-05-31 12:29] LABS: METH RESISTANT S AUREUS PCR NEGATIVE (NEGATIVE)
[2017-05-31 12:30] LABS: PROBE CHECK PASS; SPECIMEN PROCESSING CONTROL PASS
[2017-05-31 12:49] LABS: POINT-OF-CARE METER ID UU13113694
[2017-05-31 13:17] LABS: POINT-OF-CARE METER ID UU13113694
[2017-05-31 15:10] LABS: POINT-OF-CARE METER ID UU13113675
[2017-05-31 16:02] VITALS: BP 181/82
[2017-05-31 17:13] VITALS: BP 155/74
== END 2017-05-31 17:25 | disposition home or self-care (01) ==
LOC: SDC 10:37
PROVIDERS: Podiatrist Foot & Ankle Surgery
DX: A52.16 Charcot's arthropathy (tabetic) (principal); M89.372 Hypertrophy of bone, left ankle and foot; E11.621 Type 2 diabetes mellitus with foot ulcer; L97.529 Non-pressure chronic ulcer of other part of left foot with unspecified severity; E11.610 Type 2 diabetes mellitus with diabetic neuropathic arthropathy; Z79.4 Long term (current) use of insulin; I25.10 Atherosclerotic heart disease of native coronary artery without angina pectoris; M21.542 Acquired clubfoot, left foot; I10 Essential (primary) hypertension; E78.00 Pure hypercholesterolemia, unspecified; K21.9 Gastro-esophageal reflux disease without esophagitis; Z82.49 Family history of ischemic heart disease and other diseases of the circulatory system; Z83.3 Family history of diabetes mellitus; Z80.9 Family history of malignant neoplasm, unspecified; Z79.82 Long term (current) use of aspirin; Z68.36 Body mass index [BMI] 36.0-36.9, adult
CPT/HCPCS: 82948; 87070; 87075; 87205; 87641; 88305; 88311; J1100; J2250; J2405; J2795; J3010; S0020